=== PATIENT | male | born 1990 | race American Indian/Alaskan Native ===

== ENCOUNTER 2017-11-17 19:34 | Emergency (ER) | payer SELFPAY ==
[2017-11-17] MEDS ORDERED: Albuterol-Ipratrop 3 mg / 0.5 (3 ml) UD ONE (19:42)
[2017-11-17 19:43] VITALS: TEMP 98.7
[2017-11-17] MEDS ORDERED: Albuterol-Ipratrop 3 mg / 0.5 (3 ml) UD IH STA (20:03)
[2017-11-17 20:33] VITALS: BP 132/74; PULSE 79; RESP 22; O2SAT 100
--- NOTE | 2017-11-17 20:59 | C.PDOC ---
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 Patient states he felt winded while going up the steps and stayed SOB. He does not have an epipen and the last time they had a reaction like this was 3 months ago, he did use an epipen at the time and was seen afterward at a hospital in [place]. Denies chest pain, difficulty swallowing, or facial swelling. Time Seen by Provider: 11/17/17 19:57 Chief Complaint (Nursing): Allergic Reaction History Per: Patient History/Exam Limitations: no limitations Onset/Duration Of Symptoms: Hrs Current Symptoms Are (Timing): Still Present Possible Cause: Food Associated Symptoms: Dyspnea. denies: Swelling, Trouble Swallowing, Itching, Chest Pain Home/EMS Treatment: None Recent travel outside of the [place]: No Past Medical History Reviewed: Historical Data, Nursing Documentation, Vital Signs Vital Signs: Last Vital Signs Temp 98.7 F 11/17/17 19:41 Pulse 79 11/17/17 20:27 Resp 22 11/17/17 20:27 BP 132/74 11/17/17 20:27 Pulse Ox 100 11/17/17 21:18 - Medical History PMH: Asthma Surgical History: No Surg Hx Family History: States: Unknown Family Hx - Social History Hx Alcohol Use: No Hx Substance Use: No Review Of Systems Constitutional: Negative for: Fever, Chills Cardiovascular: Negative for: Chest Pain, Palpitations Respiratory: Positive for: Shortness of Breath, Other (Chest tightness) Skin: Negative for: Other (Swelling) Physical Exam - Physical Exam Appears: Non-toxic, Other (Mildly SOB, tachypneic) Skin: Normal Color, Warm, Dry Head: Atraumatic, Normacephalic Eye(s): bilateral: Normal Inspection Oral Mucosa: Moist Chest: Symmetrical Cardiovascular: Rhythm Regular Respiratory: Accessory Muscle Use, No Rales, No Rhonchi, Wheezing (Slightly) Gastrointestinal/Abdominal: Soft, No Tenderness Neurological/Psych: Oriented x3, Normal Speech ED Course And Treatment O2 Sat by Pulse Oximetry: 100 (Room air) Pulse Ox Interpretation: Normal Progress Note: On arrival patient was given solumedrol and given an albuterol nebulizer. Patient reports improvement of symptoms and is requesting to go home. Reevaluation Time: 21:26 Reassessment Condition: Improved (Lungs clear without any evidence of respiratory distress.) Disposition Counseled Patient/Family Regarding: Diagnosis, Need For Followup, Rx Given - Disposition Referrals: [facility] [Outside] Disposition: HOME/ ROUTINE Disposition Time: 20:55 Condition: IMPROVED Prescriptions: Albuterol HFA [Ventolin HFA 90 mcg/actuation (8 g)] 2 puff IH [id number] #1 inhaler Epinephrine [Epipen] 0.3 mg IJ ASDIR PRN #3 auto.injct PRN Reason: Anaphylaxis Methylprednisolone [Medrol Dose Pack (21 tabs)] 4 mg PO ASDIR #21 mg Instructions: Food Allergy (ED), Anaphylaxis (ED) Forms: [employer] ([place] Arabian) - Clinical Impression Clinical Impression: Allergy to seafood, Allergic asthma - Scribe Statement The provider has reviewed the documentation as recorded by the Scribe Jose Garrett All medical record entries made by the Scribe were at my direction and personally dictated by me. I have reviewed the chart and agree that the record accurately reflects my personal performance of the history, physical exam, medical decision making, and the department course for this patient. I have also personally directed, reviewed, and agree with the discharge instructions and disposition.
== END 2017-11-17 21:11 | disposition home or self-care (01) ==
LOC: C.ER 19:34
DX: J45.909 Unspecified asthma, uncomplicated (principal); Z91.013 Allergy to seafood
CPT/HCPCS: 94150; 94640; 96374; 99285; J2930

== ENCOUNTER 2017-12-01 22:57 | Emergency (ER) | payer OTHER ==
[2017-12-01] MEDS ORDERED: Albuterol 0.083% Inhal Sol (2.5 mg/3 mL) UD IH STA (23:14)
[2017-12-01] MEDS ORDERED: Albuterol-Ipratrop 3 mg / 0.5 (3 ml) UD IH STA (23:14)
[2017-12-01] MEDS ORDERED: Albuterol 0.083% Inhal Sol (2.5 mg/3 mL) UD ONE (23:47)
[2017-12-01] MEDS ORDERED: Albuterol-Ipratrop 3 mg / 0.5 (3 ml) UD ONE (23:47)
--- NOTE | 2017-12-02 00:04 | C.PDOC ---
History Of Present Illness 27 year old male presents to ED with complaints of wheezing that started at work. Associated symptoms are SOB that worsens with cold air. 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 Pt states the previous symptoms also included having a reactive airway and was administered an inhaler and steroids. Pt states he did not fill the prescription for the inhaler. Time Seen by Provider: 12/01/17 23:10 Chief Complaint (Nursing): Shortness Of Breath History Per: Patient History/Exam Limitations: no limitations Onset/Duration Of Symptoms: Hrs Current Symptoms Are (Timing): Still Present Associated Symptoms: Other (Wheezing and SOB). denies: Fever, Chills, Chest Pain, Heart Racing Recent travel outside of the [place]: No Past Medical History Reviewed: Historical Data, Nursing Documentation, Vital Signs Vital Signs: Last Vital Signs Temp 97.4 F L 12/01/17 23:21 Pulse 74 12/01/17 23:21 Resp 16 12/01/17 23:38 BP 130/84 12/01/17 23:21 Pulse Ox 97 12/02/17 00:08 - Medical History PMH: Asthma Surgical History: No Surg Hx Family History: States: Unknown Family Hx - Social History Hx Alcohol Use: No Hx Substance Use: No Review Of Systems Constitutional: Negative for: Fever Cardiovascular: Negative for: Chest Pain, Palpitations Respiratory: Positive for: Shortness of Breath Gastrointestinal: Positive for: Other (Wheezing). Negative for: Nausea, Vomiting, Abdominal Pain, Diarrhea Neurological: Negative for: Weakness Physical Exam - Physical Exam Appears: Non-toxic Skin: Warm, Dry Head: Atraumatic, Normacephalic Eye(s): bilateral: Normal Inspection Oral Mucosa: Moist Neck: Supple Chest: Symmetrical, No Tenderness Cardiovascular: Rhythm Regular Respiratory: No Rales, No Rhonchi, Wheezing (Diffuse) Gastrointestinal/Abdominal: Soft, No Tenderness Neurological/Psych: Oriented x3, Normal Speech, Normal Cognition ED Course And Treatment O2 Sat by Pulse Oximetry: 97 (RA) Pulse Ox Interpretation: Normal Progress Note: Patient treated with albuterol via nebulizer. Reevaluation Time: 00:23 Reassessment Condition: Improved (Lungs clear. No respiratory distress.) Medical Decision Making Medical Decision Making: Administered Albuterol nebulizer. Disposition Counseled Patient/Family Regarding: Studies Performed, Diagnosis, Need For Followup - Disposition Referrals: [facility] [Outside] Disposition: HOME/ ROUTINE Disposition Time: 00:23 Condition: IMPROVED Additional Instructions: Fill the prescriptions for Albuterol you were given on your prior visit Instructions: Bronchospasm (ED) Forms: [employer] (Turkish) - Clinical Impression Clinical Impression: Bronchospasm, acute - Scribe Statement The provider has reviewed the documentation as recorded by the Carolaibsoniya Calix All medical record entries made by the Carolaibsoniya were at my direction and personally dictated by me. I have reviewed the chart and agree that the record accurately reflects my personal performance of the history, physical exam, medical decision making, and the department course for this patient. I have also personally directed, reviewed, and agree with the discharge instructions and disposition.
[2017-12-02 00:33] VITALS: BP 128/79; PULSE 88; RESP 18; TEMP 97.8; O2SAT 98
== END 2017-12-02 00:33 | disposition home or self-care (01) ==
LOC: C.ER 22:57
DX: J98.01 Acute bronchospasm (principal); F17.210 Nicotine dependence, cigarettes, uncomplicated

== ENCOUNTER 2018-01-03 17:56 | Emergency (ER) | payer OTHER ==
[2018-01-03 20:18] VITALS: BP 143/80; PULSE 84; RESP 18; TEMP 98; O2SAT 98
[2018-01-03] MEDS ORDERED: Oxycodone/Acetaminophen 5/325 mg Tab PO STA (21:07)
[2018-01-03] MEDS ORDERED: Oxycodone/Acetaminophen 5/325 mg Tab ONE (21:12)
--- NOTE | 2018-01-03 21:36 | C.PDOC ---
History Of Present Illness 27 year old male presents to the ER with a complaint of pain to the bilateral wisdom teeth. Denies fever or tooth discharge. Time Seen by Provider: 01/03/18 20:59 Chief Complaint (Nursing): Dental Pain History Per: Patient History/Exam Limitations: no limitations Onset/Duration Of Symptoms: Days Current Symptoms Are (Timing): Still Present Recent travel outside of the [place]: No Past Medical History Reviewed: Historical Data, Nursing Documentation, Vital Signs Vital Signs: Last Vital Signs Temp 98 F 01/03/18 20:14 Pulse 84 01/03/18 20:14 Resp 18 01/03/18 20:14 BP 143/80 01/03/18 20:14 Pulse Ox 98 01/03/18 21:39 - Medical History PMH: Asthma Family History: States: Unknown Family Hx - Social History Hx Alcohol Use: Yes Hx Substance Use: No - Immunization History Hx Tetanus Toxoid Vaccination: No Hx Influenza Vaccination: No Hx Pneumococcal Vaccination: No Review Of Systems Constitutional: Negative for: Fever, Chills ENT: Positive for: Mouth Pain. Negative for: Mouth Swelling, Other (Tooth discharge) Physical Exam - Physical Exam Appears: Non-toxic, No Acute Distress Skin: Normal Color, Warm, Dry Head: Atraumatic, Normacephalic Eye(s): bilateral: Normal Inspection Ear(s): Bilateral: Normal Nose: Normal Oral Mucosa: Moist Teeth: Caries (To bilateral wisdom teeth) Gingiva: Normal Appearing Throat: Normal, No Erythema, No Exudate Neck: Normal, Supple ED Course And Treatment O2 Sat by Pulse Oximetry: 98 (room air) Pulse Ox Interpretation: Normal Progress Note: Percocet administered with relief. Patient started on [id number] and discharged home with instructions to follow up with dentist for further evaluation. Disposition - Disposition Referrals: [facility] [Outside] Disposition: HOME/ ROUTINE Disposition Time: 21:37 Condition: STABLE Additional Instructions: Follow up with dentist within 1-2 days. Return to ED if feels worse. Prescriptions: Ibuprofen [Motrin Tab] 600 mg PO Q8 #30 tab Penicillin VK [Penicillin VK Tab] 500 mg PO Q6H #40 tab oxyCODONE/Acetaminophen [Percocet 5/325 mg Tab] 1 tab PO QID PRN #20 tab PRN Reason: Pain Instructions: Toothache (ED) Forms: [id number] ([place])[facility] - Clinical Impression Clinical Impression: Pain, dental - PA / LAB SPECIALIST / Resident Statement MD/DO has reviewed & agrees with the documentation as recorded. - Scribe Statement The provider has reviewed the documentation as recorded by the Scribe
== END 2018-01-03 21:45 | disposition home or self-care (01) ==
LOC: SUPCPDRO 17:56 → C.ER 17:56
DX: K08.89 Other specified disorders of teeth and supporting structures (principal)